=== PATIENT | female | born 1940 | race Caucasian/White ===

== ENCOUNTER 2017-12-14 12:06 | Observation (INO) | payer MEDICARE ==
[~2017-12-14] VITALS: Ht 162.6 cm; Wt 54.4 kg
[~2017-12-14 12:06] MED LIST: AMOXICILLIN875 MG PO; ATENOLOL50 MG PO; CRESTOR20 MG PO; FLONASE NASAL50 MCG; KEFLEX500 MG PO; LO-DOSE ASA81 MG PO; LOSARTAN POTASS25 MG PO; MECLIZINE12.5 M1 PO; NO MEDS; PLAVIX75 MG PO
[2017-12-14 12:48] LABS: HEMOGLOBIN 12.9 g/dl (12.0-16.0); IMMATURE GRANULOCYTES 1.2 % (0.0-5.0); MEAN CORPUSCULAR HGB 30.4 pG CALC (26.0-32.0); MEAN CORPUSCULAR HGB CONC 33.1 g/L CALC (32.0-36.0); NEUT# 4.96 thou/uL (2.00-7.15); RED BLOOD COUNT 4.24 mill/uL (4.20-5.60); RED CELL DISTRI WIDTH 13.6 % (11.5-15.5)
[2017-12-14 13:12] LABS: D-DIMER 0.33 mg/L (0.19-0.60); PROTHROMBIN TIME 10.6 SECONDS (9.0-12.5)
[2017-12-14 13:16] LABS: ALBUMIN 4.2 g/dL (3.2-5.0); ALKALINE PHOSPHATASE 69 u/l (38-126); ANION GAP 17 (6-22 (CALC)); BILIRUBIN, TOTAL 0.4 mg/dL (0.0-1.4); BUN 9 mg/dL (8-23); BUN/CREATININE RATIO 8 (12-20 (CALC)); CARBON DIOXIDE 25 mmol/l (22-30); CHLORIDE 102 mmol/l (95-108); CREATININE 1.1 mg/dL (0.5-1.0); GFR 48 ML/MIN (>=60 (CALC)); GFR FOR AFR.AMER. 59 ML/MIN (>=60 (CALC)); POTASSIUM 3.8 mmol/l (3.5-5.1); SGOT/AST 15 u/l (9-36); SGPT/ALT 20 u/l (11-66); TOTAL PROTEIN 6.9 g/dL (6.3-8.2)
[2017-12-14 13:17] LABS: SODIUM 140 mmol/l (137-146)
[2017-12-14 14:33] LABS: URINE BILIRUBIN - DIPSTICK NEGATIVE (NEGATIVE); URINE BLOOD DIPSTICK NEGATIVE (NEGATIVE); URINE CLARITY TURBID; URINE COLOR YELLOW; URINE GLUCOSE - DIPSTICK NEGATIVE (NEGATIVE); URINE KETONE NEGATIVE (NEGATIVE); URINE LEUK ESTERASE SMALL (NEGATIVE); URINE NITRITE - DIPSTICK NEGATIVE (Negative); URINE PROTEIN - DIPSTICK NEGATIVE (NEG-TRACE); URINE SPECIFIC GRAVITY <=1.005; URINE UROBILINOGEN - DIPSTICK 0.2 E.U./dL (0.2)
[2017-12-14 15:46] LABS: URINE SQUAMOUS EPITHELIAL CELL FEW EPI/hpf (0-FEW)
[2017-12-14 16:28] VITALS: BP 140/68
[2017-12-14 19:35] VITALS: BP 114/66
[2017-12-15 00:07] VITALS: BP 113/67
[2017-12-15 04:29] VITALS: BP 104/76
[2017-12-15 09:00] VITALS: BP 123/61
[2017-12-15 11:08] VITALS: BP 106/65
[2017-12-15] MEDS ORDERED: VITAMIN D2000 UNIT PO (11:16)
[2017-12-15] MEDS ORDERED: ATENOLOL50 MG PO (14:43)
== END 2017-12-15 16:33 | disposition home or self-care (01) ==
LOC: ED 12:06 → ED-I 14:26 → ED 15:19 → MS2 15:20
PROVIDERS: Emergency Medicine; ADMIT Internal Medicine; ATTEND Internal Medicine
DX: I47.1 Supraventricular tachycardia (principal); I25.10 Atherosclerotic heart disease of native coronary artery without angina pectoris; I10 Essential (primary) hypertension; E86.0 Dehydration; N39.0 Urinary tract infection, site not specified; E78.5 Hyperlipidemia, unspecified; Z87.440 Personal history of urinary (tract) infections; Z87.891 Personal history of nicotine dependence; Z95.5 Presence of coronary angioplasty implant and graft

== ENCOUNTER 2022-02-22 15:20 | Emergency (ER) | payer MEDICARE ==
[~2022-02-22] VITALS: Ht 162.6 cm; Wt 52.0 kg
[2022-02-22] VITALS (10 sets, daily range): BP systolic 112–151; BP diastolic 51–108
[~2022-02-22 15:20] MED LIST changes: +VITAMIN D2000 UNIT PO
[2022-02-22 16:27] LABS: HEMOGLOBIN 12.1 g/dl (12.0-16.0); IMMATURE GRANULOCYTES 0.1 % (0.0-5.0); MEAN CELL VOLUME 95.4 fL CALC (80.0-100.0); MEAN CORPUSCULAR HGB 31.2 pG CALC (26.0-32.0); MEAN CORPUSCULAR HGB CONC 32.7 g/dL CAL (32.0-36.0); NEUT# 4.22 thou/uL (2.00-7.15); RED BLOOD COUNT 3.88 mill/uL (4.20-5.60); RED CELL DISTRI WIDTH 13.6 % (11.5-15.5)
[2022-02-22 16:50] LABS: ALBUMIN 4.7 g/dL (3.2-5.0); ALKALINE PHOSPHATASE 66 u/l (38-126); ANION GAP 17 (6-22 (CALC)); BILIRUBIN, TOTAL 0.4 mg/dL (0.0-1.4); BUN 15 mg/dL (8-23); BUN/CREATININE RATIO 12 (12-20 (CALC)); CARBON DIOXIDE 25 mmol/l (22-30); CHLORIDE 101 mmol/l (95-108); CREATININE 1.3 mg/dL (0.5-1.0); GFR FOR AFR.AMER. 48 ML/MIN (>=60 (CALC)); GFR OTHER RACES 40 ML/MIN (>=60 (CALC)); POTASSIUM 3.9 mmol/l (3.5-5.1); SGOT/AST 26 u/l (9-36); SODIUM 138 mmol/l (137-146); TOTAL PROTEIN 7.7 g/dL (6.3-8.2)
[2022-02-22] MEDS ORDERED: ZPAK PO (17:53)
[2022-02-22] MEDS ORDERED: MEDDOSEPAK PO (17:53)
== END 2022-02-22 18:17 | disposition home or self-care (01) ==
LOC: ED 15:20
PROVIDERS: Nurse Practitioner
DX: J06.9 Acute upper respiratory infection, unspecified (principal); J44.9 Chronic obstructive pulmonary disease, unspecified; I10 Essential (primary) hypertension; I25.10 Atherosclerotic heart disease of native coronary artery without angina pectoris; Z95.5 Presence of coronary angioplasty implant and graft; F17.200 Nicotine dependence, unspecified, uncomplicated; Z20.822 Contact with and (suspected) exposure to COVID-19